=== PATIENT | female | born 1975 | race Caucasian/White ===

== ENCOUNTER 2017-10-27 14:15 | Inpatient (IN) | payer BC ==
[2017-10-27 14:26] VITALS: BMI 33.1
[2017-10-27 14:55] LABS: BILIRUBIN,URINE 2+ (NEGATIVE); BLOOD/HEMOGLOBIN,URINE 5+ (NEGATIVE); GLUCOSE, URINE NEGATIVE (NEGATIVE); KETONES,URINE 3+ (NEGATIVE); LEUKOCYTE ESTERASE ,URINE 1+ (NEGATIVE); NITRITES,URINE NEGATIVE (NEGATIVE); PROTEIN,URINE 1+ (NEGATIVE); UROBILINOGEN,URINE 2+ (NORMAL)
[2017-10-27] MEDS ORDERED: NS 1000 ML 1,000 ML ONE (14:56)
--- NOTE | 2017-10-27 14:59 | ED.ABDFE ---
HPI - Time seen Time seen: 14:52 - PCP Primary Care Physician: NFD - Complaint Chief Complaint Doctors Comments: Patient is complaining of RUQ pain for the past 24 hours getting worst with nausea and vomiting x1. States she has had problems with her gallbladder before and she would take Advil and the pain would go away but the pain would not go away today. States she was told she had a small gall stone about 3-4 years ago and that it was up to her to have it out or not and she never did go back to the doctor. States the pain is 7 of 10. She denies dysuria, hematuria, fever, chills or dionisio. States she is on her period presently and she has had a bilateral tubaligation in the past. She denies tobacco or alcohol usage. States she last had Advil around 11 am and ate about four hours ago. States she has had problems with elevated blood pressure before. Chief Complaint:: PT C/O RIGHT UPPER QUAD PAIN AT 1 PM AND THAT SHE WAS DX A LITTLE WHILE AGO WITH STONES AND PT WENT TO [facility] AND SHE STATES SHE WAS TOLD TO COME THE ER B/C THEY HAD NO WAY TO CHECK HER OUT.. - Nurses notes reviewed Nurses Notes Review: Yes - Source History Provided: Patient - Mode of arrival Mode of Arrival: Ambulatory - Timing Onset of Chief Complaint: 10/25/17 Came on: Gradually - Duration Duration: Intermittent How lon Duration: Days - Location Location: RUQ - Severity Severity: Moderate - Quality Quality: Sharp - Context Onset: Gradually History of: Similar pain (dx) - Modifying Worsening Factors: Nothing Improving Factors: Nothing - Associated signs and symptoms Associated Signs and Symptoms: Nausea, Vomiting PMH - PMH Past Medical History: No Past Surgical History: Yes Past Surgical History Comment: TUBAL.. - Family History History of Family Medical Conditions: No - Social History Does patient currently use any type of tobacco product: No Have you used tobacco products in the last 12 months: No Type of Tobacco Use: None Does any household member use tobacco: No Alcohol Use: Rarely Do you use any recreational Drugs:: No Lives With: Family Lives Where: Home - infectious screening In the last 2 months have you had wt loss of >10#?: NO Have you had fever, night sweats or hemotysis?: No Have you traveled outside the country in the last 6 months?: No Isolation: Standard ROS - Review of Systems Constitutional: No Symptoms Reported, Loss of Appetite. negative: See HPI, Chills, Diaphoresis, Fever, Malaise, Weakness, Irritable, Fatigue, Other Eyes: No Symptoms Reported. negative: See HPI, Eye Pain, Blurred Vision, Tearing, Discharge, Photophobia, Diplopia, Other ENTM: No Symptoms Reported Respiratoy: No Symptoms Reported. negative: See HPI, Productive Cough, Non- Productive Cough, Moist Cough, Dry Cough, Hacking Cough, Barking Cough, Brassy Cough, Orthopnea, Short of Breath, Stridor, Wheezing, Hemoptysis, Other Cardiovascular: No Symptoms Reported. negative: See HPI, Chest Pain, Edema, Palpitations, Syncope, Cyanosis, Skin Mottling, Other Gastrointestinal/Abdominal: No Symptoms Reported, Abdominal Pain, Nausea, Vomiting. negative: See HPI, Constipation, Diarrhea, Food Intolerance, Other Genitourinary: No Symptoms Reported. negative: See HPI, Discharge, Dysuria, Frequency, Hematuria, Pain, Bleeding, Other Neurological: No Symptoms Reported. negative: See HPI, Anxiety, Depressed, Emotional Problems, Headache, Numbness, Paresthesia, Pre-existing Deficit, Seizure, Tingling, Tremors, Weakness, Dizziness, Problems Walking, Speech Problem, Other Musculoskeletal: No Symptoms Reported Integumentary: No Symptoms Reported Hematologic/Lymphatic: No Symptoms Reported. negative: See HPI, Anemia, Blood Clots, Easy Bleeding, Easy Bruising, Swollen Glands, Lymphadenopathy, Other Endocrine: No Symptoms Reported Psychiatric: No Symptoms Reported. negative: See HPI, Anxiety, Depression, Hallucinations, Excessive crying, Suicidal, Other PE - Vital Signs Vitals: Temperature 99.2 F Pulse Rate [Left Brachial] 76 Pulse Rate 89 Respiratory Rate 22 Blood Pressure [Left Arm] 196/96 Blood Pressure 221/110 O2 Sat by Pulse Oximetry 100 - General Limitations: No Limitations General Appearance: Alert, In Distress (slight) - Head Head Exam: Normal Inspection, Atraumatic, Normocephalic - Eyes Eye exam: Normal Appearance, PERRL, EOMI. negative: Scleral Icterus, Conjunctival Injection, Nystagmus, Miosis, Mydrasis, Periorbital Swelling, Periorbital Tenderness, Other - ENT ENT Exam: Normal Exam, Normal Oropharynx, Normal External Ear Exam, Mucous Membranes Moist, TM's Normal Bilaterally. negative: Mucous Membranes Dry, Other - Neck Neck Exam: Normal Inspection, Full ROM, Trachea Midline. negative: Tenderness, Meningismus, Lymphadenopathy, Thyromegaly, Other - Chest Chest Inspection: Normal Inspection, Symmetric Chest Wall Rise. negative: Tenderness, Rash, Abscess, Other - Respiratory Respiratory Exam: Normal Lung Sounds Bilat. negative: Accessory Muscle Use, Chest Wall Tenderness, Prolonged Expiratory Phase, Respiratory Distress, Stridor , Other Respiratory Exam: Bilateral Clear to Auscultation - Cardiovascular Cardiovascular Exam: Regular Rate, Normal Rhythm, Normal Heart Sounds - Abdominal Exam Abdominal Exam: Normal Inspection, Normal Bowel Sounds, Soft, Tenderness (RUQ tenderness with guarding), Guarding. negative: Distention, Rebound, Rigidity, Dimnished Bowel Sounds, Hyperactive Bowel Sounds, Hypoactive Bowel Sounds, Organomegaly, Trauma, Incision, Ascites, Mass, Bruit, Pulsatile Mass, Hernia, Other Abdominal Tenderness: RUQ, Moderate. negative: RLQ, LUQ, LLQ, Epigastrium, Suprapubic, Diffuse, Mild, Severe, Other - Rectal Rectal Exam: Deferred - Back Back Exam: Normal Inspection, Full ROM. negative: Tenderness, (R) CVA Tenderness, (L) CVA Tenderness, Muscle Spasm, Paraspinal Tenderness, Vertebral Tenderness, Rashes, (R) Sciatic Notch Tenderness, (L) Sciatic Notch Tendern, (R ) Straight Leg Raise, (L) Straight Leg Raise, Other - Extremeties Extremities Exam: Normal Inspection, Full ROM, Normal Capillary Refill. negative: Tenderness, Edema, Joint Swelling, Calf Tenderness, Other - External Exam: Female: Deferred : Speculum Exam (Female): Deferred : Bimanual Exam (female): Deferred - Neurologic Neurological Exam: Alert, Oriented X3, CN II-XII Intact, Reflexes Normal. negative: Normal Gait (gait not tested) - Psychiatric Psychiatric Exam: Normal Affect, Normal Mood - Skin Skin Exam: Warm, Dry, Intact, Normal Color Course - Consultation Called: 18:07 Call Returned: 18:07 (Dr. Schmidt to admit) - Education/Counseling Education/Counseling: Patient, Family Educated On: Treatment, Diagnosis, Needs for Follow Up ROR - Labs Reviewed Laboratory Results Reviewed?: Yes (All labs and x-ray results reveiwed and discussed with patient) Result Diagrams: 10/27/17 15:10/27/17 15: Laboratory: WBC 5.2 X10^3/uL (3.6-10.0) 10/27/17 15: RBC 4.85 X10^6/uL (3.5-5.4) 10/27/17 15: Hgb 14.5 g/dL (12.0-16.0) 10/27/17 15: Hct 41.7 % (36.0-47.0) 10/27/17: MCV 85.8 fL (80.0-100.0) 10/27/17: MCH 29.8 pg (27.0-34.0) 10/27/17: MCHC 34.8 g/dL (33.0-35.0) 10/27/17 RDW 13.3 % (11.6-16.5) 10/27/17 Plt Count 286 X10^3/uL (150.0-450.0) 10/27/17 MPV 8.6 fL (7.4-11.0) 10/27/17: Neut % 64.4 % (42.0-75.0) 10/27/17: Lymph % 26.0 % (21.0-51.0) 10/27/17: [place] % 5.6 % (0.0-13.0) 10/27/17: Eos % 3.1 % (0.9-2.9) H 10/27/17: Baso % 0.9 % (0.2-1.0) 10/27/17: Neut # 3.3 x10^3/uL (2.2-4.8) 10/27/17: Lymph # 1.3 X10^3/uL (1.3-2.9) 10/27/17: [place] # 0.3 x10^3/uL (0.3-0.8) 10/27/17: Eos # 0.2 x10^3/uL (0.0-0.2) 10/27/17: Baso # 0.0 X10^3/uL (0.0-0.1) 10/27/17 15:23 Absolute Nucleated RBC 0.0 /100WBC 10/27/17 15:23 Sodium 139 mmol/L (136-145) 10/27/17 15:23 Corrected Sodium 139 mmol/L (136-145) 10/27/17 15:23 Potassium 3.4 mmol/L (3.5-5.1) L 10/27/17 15:23 Chloride 102 mmol/L (98-107) 10/27/17 15:23 Carbon Dioxide 25.7 mmol/L (21-32) 10/27/17 15:23 BUN 5 mg/dL (7-18) L 10/27/17 15:23 Creatinine 0.49 mg/dL (0.55-1.02) L 10/27/17 15:23 Est GFR (MDRD) Af Amer > 60 (>60) 10/27/17 15:23 Est GFR (MDRD) Non-Af > 60 (>60) 10/27/17 15:23 Glucose 120 mg/dL (65-99) H 10/27/17 15:23 Calcium 8.8 mg/dL (8.5-10.1) 10/27/17 15:23 Corrected Calcium TNP 10/27/17 15:23 Total Bilirubin 5.40 mg/dL (0.2-1.0) H 10/27/17 15:23 AST 317 Units/L (15-37) H 10/27/17 15:23 ALT 521 Units/L (12-78) H 10/27/17 15:23 Alkaline Phosphatase 248 Units/L (46-116) H 10/27/17 15:23 Total Protein 8.3 g/dL (6.4-8.2) H 10/27/17 15:23 Albumin 4.2 g/dL (3.4-5.0) 10/27/17 15:23 Globulin 4.1 g/dL (2.5-4.5) 10/27/17 15:23 Albumin/Globulin Ratio 1.0 Ratio (1.1-2.1) L 10/27/17 15:23 Amylase 51 Units/L (25-115) 10/27/17 15:23 Lipase 128 Units/L (73-393) 10/27/17 15:23 Specimen Type Clean catch urine 10/27/17 14:45 Urine Color Dark yellow (YELLOW) 10/27/17 14:45 Urine Appearance Slightly hazy (CLEAR) 10/27/17 14:45 Urine pH 7.0 (5.0 - 8.0) 10/27/17 14:45 Ur Specific [place] 1.010 (1.000-1.030) 10/27/17 14:45 Urine Protein 1+ (NEGATIVE) 10/27/17 14:45 Urine Glucose (UA) Negative (NEGATIVE) 10/27/17 14:45 Urine Ketones 3+ (NEGATIVE) 10/27/17 14:45 Urine Occult Blood 5+ (NEGATIVE) 10/27/17 14:45 Urine Nitrite Negative (NEGATIVE) 10/27/17 14:45 Urine Bilirubin 2+ (NEGATIVE) 10/27/17 14:45 Urine Urobilinogen 2+ (NORMAL) 10/27/17 14:45 Ur Leukocyte Esterase 1+ (NEGATIVE) 10/27/17 14:45 Urine RBC 01 - 03 /HPF (NONE SEEN) 10/27/17 14:45 Urine WBC 01 - 04 /HPF (NONE SEEN) 10/27/17 14:45 Ur Squamous Epith Cells Many /HPF (NEGATIVE) 10/27/17 14:45 Amorphous Sediment 1+ /HPF (NEGATIVE) 10/27/17 14:45 Urine Bacteria Trace /HPF (NEGATIVE) 10/27/17 14:45 Hyaline Casts Few /LPF (NEGATIVE) 10/27/17 14:45 Urine Mucus Moderate /HPF (NEGATIVE) 10/27/17 14:45 Ur Culture Indicated? No/not indicated 10/27/17 14:45 - XRAY XRAY Interpreted by: Radiologist (CT abdomen and pelvis: Cholelithiasis) - Diagnosis Discharge Problem: Essential hypertension, Abnormal liver enzymes Cholelithiasis Qualifiers: Cholecystitis presence: with cholecystitis Cholecystitis acuity: acute Abdominal pain Qualifiers: Abdominal location: right upper quadrant Qualified Code(s): R10.11 - Right upper quadrant pain - Discharge Plan Disposition: ADMITTED INPATIENT Condition: Stable - Follow ups/Referrals Follow ups/Referrals: NFD,None [Primary Care Provider] - 3 days - Instructions
[2017-10-27] MEDS ORDERED: NS 1000 ML 1,000 ML IV SCH (15:00)
[2017-10-27 15:08] LABS: APPEARANCE,URINE SLIGHTLY HAZY (CLEAR); COLOR,URINE DARK YELLOW (YELLOW); SQUAMOUS EPITHELIAL CELL,UR MANY /HPF (NEGATIVE)
[2017-10-27 15:09] LABS: AMORPHOUS SEDIMENT,UR 1+ /HPF (NEGATIVE); BACTERIA,URINE TRACE /HPF (NEGATIVE); HYALINE CASTS, URINE FEW /LPF (NEGATIVE); MUCUS,URINE MODERATE /HPF (NEGATIVE)
--- NOTE | 2017-10-27 15:21 | RAD ---
Examination: Portable AP chest History: Right upper quadrant pain Findings: Normal cardiac size with clear lungs and pleural spaces. Impression: No acute or significant findings. Reported By:
[2017-10-27] MEDS ORDERED: TORADOL 30 MG VIAL IVP STA (15:32)
[2017-10-27 15:43] LABS: BASOPHILS % (AUTO) 0.9 % (0.2-1.0); EOSINOPHILS # (AUTO) 0.2 x10^3/uL (0.0-0.2); EOSINOPHILS % (AUTO) 3.1 % (0.9-2.9); HEMATOCRIT 41.7 % (36.0-47.0); HEMOGLOBIN 14.5 g/dL (12.0-16.0); LYMPHOCYTES # (AUTO) 1.3 X10^3/uL (1.3-2.9); MEAN CORPUSCULAR HEMOGLOBIN 29.8 pg (27.0-34.0); MEAN CORPUSCULAR HGB CONC 34.8 g/dL (33.0-35.0); MEAN CORPUSCULAR VOLUME 85.8 fL (80.0-100.0); MEAN PLATELET VOLUME 8.6 fL (7.4-11.0); MONOCYTES # (AUTO) 0.3 x10^3/uL (0.3-0.8); MONOCYTES % (AUTO) 5.6 % (0.0-13.0); NEUTROPHILS # (AUTO) 3.3 x10^3/uL (2.2-4.8); NEUTROPHILS % (AUTO) 64.4 % (42.0-75.0); PLATELET COUNT 286 X10^3/uL (150.0-450.0); RED BLOOD COUNT 4.85 X10^6/uL (3.5-5.4); RED CELL DISTRIBUTION WIDTH 13.3 % (11.6-16.5); WHITE BLOOD COUNT 5.2 X10^3/uL (3.6-10.0)
[2017-10-27 15:55] LABS: ALANINE AMINOTRANSFERASE 521 Units/L (12-78); ALBUMIN 4.2 g/dL (3.4-5.0); ALKALINE PHOSPHATASE 248 Units/L (46-116); AMYLASE 51 Units/L (25-115); ASPARTATE AMINO TRANSFERASE 317 Units/L (15-37); BLOOD UREA NITROGEN 5 mg/dL (7-18); CALCIUM 8.8 mg/dL (8.5-10.1); CARBON DIOXIDE 25.7 mmol/L (21-32); CHLORIDE 102 mmol/L (98-107); COR NA(FOR HYPERGLY) 139 mmol/L (136-145); CREATININE 0.49 mg/dL (0.55-1.02); LIPASE 128 Units/L (73-393); SODIUM 139 mmol/L (136-145); eGFR BLACK RACES > 60 (>60); eGFR NON BLACK RACES > 60 (>60)
[2017-10-27 15:58] LABS: TOTAL PROTEIN 8.3 g/dL (6.4-8.2)
[2017-10-27] MEDS ORDERED: TORADOL 30 MG VIAL ONE (15:58)
--- NOTE | 2017-10-27 16:02 | CT ---
HISTORY: Right upper quadrant pain Study: CT abdomen and pelvis without contrast Comparison: None Technique: Multiple axial images of the abdomen and pelvis were obtained from the lung bases to the pubic symphy sis without the administration of IV contrast. Findings: The visualized portions of the lung bases demonstrates a calcified right lower lobe granuloma.. The liver, spleen, pancreas, kidneys, and adrenal glands are unremarkable in their CT appearance. The gal lbladder demonstrates gallstones. No significant mesenteric lymphadenopathy or stranding can be obse rved. No free fluid or free air is seen within the abdomen. No bowel wall thickening or bowel dilat ation is present. The colon is unremarkable. Specifically, there is no diverticulosis noted within the sigmoid colon. Appendix is normal. The urinary bladder is grossly unremarkable. The bony structu res are grossly intact. IMPRESSION: 1. Cholelithiasis. Reported By:
[2017-10-27] MEDS ORDERED: MORPHINE SULFATE INJ 2 MG INJ IVP ONE (17:19)
[2017-10-27] MEDS ORDERED: ROCEPHIN 1 GM IV PREMIX 1 GM/50 ML IV.SOLN. IV ONE ×2 (17:19→17:20)
[2017-10-27] MEDS ORDERED: MORPHINE SULFATE INJ 2 MG INJ ONE (17:20)
[2017-10-27] MEDS ORDERED: PHENERGAN INJ 25 MG IVP PRN (18:11)
[2017-10-27] MEDS ORDERED: ZOFRAN INJ 4 MG VIAL IVP PRN (18:11)
[2017-10-27] MEDS ORDERED: PEPCID 20 MG IV PREMIX* 20 MG/50 ML BAG IV PRN (18:11)
[2017-10-27] MEDS: D5 1/2 NS 1000 ML 1,000 ML IV SCH (20:39)
[2017-10-28] MEDS: D5 1/2 NS 1000 ML 1,000 ML IV SCH ×2 (05:33→18:17)
[2017-10-28 06:12] LABS: BASOPHILS % (AUTO) 0.7 % (0.2-1.0); EOSINOPHILS # (AUTO) 0.2 x10^3/uL (0.0-0.2); HEMATOCRIT 38.6 % (36.0-47.0); HEMOGLOBIN 13.5 g/dL (12.0-16.0); LYMPHOCYTES # (AUTO) 1.8 X10^3/uL (1.3-2.9); LYMPHOCYTES % (AUTO) 32.4 % (21.0-51.0); MEAN CORPUSCULAR HEMOGLOBIN 30.1 pg (27.0-34.0); MEAN CORPUSCULAR HGB CONC 34.8 g/dL (33.0-35.0); MEAN CORPUSCULAR VOLUME 86.6 fL (80.0-100.0); MEAN PLATELET VOLUME 8.7 fL (7.4-11.0); MONOCYTES # (AUTO) 0.4 x10^3/uL (0.3-0.8); MONOCYTES % (AUTO) 6.8 % (0.0-13.0); NEUTROPHILS # (AUTO) 3.2 x10^3/uL (2.2-4.8); NEUTROPHILS % (AUTO) 57.1 % (42.0-75.0); PLATELET COUNT 294 X10^3/uL (150.0-450.0); RED BLOOD COUNT 4.46 X10^6/uL (3.5-5.4); RED CELL DISTRIBUTION WIDTH 13.8 % (11.6-16.5); WHITE BLOOD COUNT 5.6 X10^3/uL (3.6-10.0)
[2017-10-28 06:25] LABS: ALANINE AMINOTRANSFERASE 431 Units/L (12-78); ALBUMIN 3.7 g/dL (3.4-5.0); ALKALINE PHOSPHATASE 218 Units/L (46-116); ASPARTATE AMINO TRANSFERASE 223 Units/L (15-37); BLOOD UREA NITROGEN 4 mg/dL (7-18); CALCIUM 8.5 mg/dL (8.5-10.1); CARBON DIOXIDE 23.6 mmol/L (21-32); CHLORIDE 105 mmol/L (98-107); CREATININE 0.51 mg/dL (0.55-1.02); SODIUM 140 mmol/L (136-145); TOTAL PROTEIN 7.5 g/dL (6.4-8.2); eGFR BLACK RACES > 60 (>60); eGFR NON BLACK RACES > 60 (>60)
[2017-10-28 06:59] LABS: COR NA(FOR HYPERGLY) 141 mmol/L (136-145)
[2017-10-28] MEDS: ROCEPHIN 1 GM IV PREMIX 1 GM/50 ML IV.SOLN. IV SCH (09:04)
--- NOTE | 2017-10-28 11:56 | DR.H&P ---
H&P - History & Physical for Day of: H&P Date: 10/27/17 - Chief Complaint Chief Complaint: PT C/O RIGHT UPPER QUAD PAIN AT 1 PM AND THAT SHE WAS DX A LITTLE WHILE AGO WITH STONES AND PT WENT TO [facility] FOR THE [facility] AND SHE STATES SHE WAS TOLD TO COME THE ER B/C THEY HAD NO WAY TO CHECK HER OUT - Allergies Allergies/Adverse Reactions: Allergies Allergy/AdvReac Type Severity Reaction Status Date / Time No Known Drug Allergies Allergy Verified 10/27/17 14:21 - History of Present Illness History of Present Illness: 42 WF ER ADMIT AFTER PRESENTING WITH CO ABDOMINAL PAIN N/V. PT HAS GALLSTONES WITH ELEVATED LIVER ENZYMES. PT ADMITTED FOR TREATMENT FOR ABDOMINAL PAIN. IV HYDRATION, PAIN CONTROL. PT DENIES ANY PMH OF DM - Past Medical History Past Medical History: denies: CHF, COPD, Coronary Artery Disease, GERD - Past Surgical History Surgical History: Other - Social History Does patient currently use any type of tobacco product: No Have you used tobacco products in the last 12 months: No Type of Tobacco Use: None Does any household member use tobacco: No Alcohol Use: None Drug Use: None - Medications Home Medications: NK [NK] 10/27/17 [History Confirmed 10/27/17] - Review of Systems Constitutional: No Symptoms Reported Eyes: No Symptoms Reported ENT: No Symptoms Reported Respiratory: No Symptoms Reported Cardiovascular: No Symptoms Reported Gastrointestinal: Nausea, Vomiting, Abdominal Pain Genitourinary: No Symptoms Reported Musculoskeletal: No Symptoms Reported Skin: No Symptoms Reported Neurological: No Symptoms Reported - Physical Exam Vital Signs: Temperature 98.2 F Pulse Rate [Right Brachial] 79 Pulse Rate [Left Brachial] 70 Pulse Rate 89 Respiratory Rate 18 Blood Pressure [Right Arm] 169/83 Blood Pressure [Left Arm] 145/84 Blood Pressure 221/110 O2 Sat by Pulse Oximetry 94 Oriented: Normal Eyes: Normal Ear: Normal Nose: Normal Throat: Normal Respiratory: RLL Diminished, LLL Diminished Cardiovascular: Normal : Normal Auscultation: Bowel Sounds: Normal, Absent Tenderness: RUQ, Epigastric Skin: Normal Musculoskeletal: Normal Psychiatric: Normal Mood Description: Calm Speech Pattern: Clear - Assessment/Plan (1) Abdominal pain Qualifiers: Abdominal location: right upper quadrant Qualified Code(s): R10.11 - Right upper quadrant pain Status: Acute Plan: ADMIT, PAIN CONTROL, GENTLE HYDRATION. NPO, REPEAT AM LABS. N/V MANAGEMENT (2) Abnormal liver enzymes Status: Acute (3) Cholelithiasis Qualifiers: Cholecystitis presence: with cholecystitis Cholecystitis acuity: acute Status: Acute (4) Essential hypertension Status: Acute
[2017-10-29] MEDS: D5 1/2 NS 1000 ML 1,000 ML IV SCH ×3 (04:41→21:42)
[2017-10-29 04:55] LABS: ALANINE AMINOTRANSFERASE 318 Units/L (12-78); ALBUMIN 3.5 g/dL (3.4-5.0); ALKALINE PHOSPHATASE 201 Units/L (46-116); ASPARTATE AMINO TRANSFERASE 130 Units/L (15-37); BLOOD UREA NITROGEN 4 mg/dL (7-18); CALCIUM 8.6 mg/dL (8.5-10.1); CARBON DIOXIDE 25.7 mmol/L (21-32); CHLORIDE 103 mmol/L (98-107); COR NA(FOR HYPERGLY) 139 mmol/L (136-145); CREATININE 0.54 mg/dL (0.55-1.02); SODIUM 138 mmol/L (136-145); TOTAL PROTEIN 7.4 g/dL (6.4-8.2); eGFR BLACK RACES > 60 (>60); eGFR NON BLACK RACES > 60 (>60)
[2017-10-29 04:57] LABS: BASOPHILS % (AUTO) 0.5 % (0.2-1.0); EOSINOPHILS # (AUTO) 0.2 x10^3/uL (0.0-0.2); EOSINOPHILS % (AUTO) 3.2 % (0.9-2.9); HEMATOCRIT 39.7 % (36.0-47.0); HEMOGLOBIN 13.4 g/dL (12.0-16.0); LYMPHOCYTES # (AUTO) 2.3 X10^3/uL (1.3-2.9); LYMPHOCYTES % (AUTO) 33.4 % (21.0-51.0); MEAN CORPUSCULAR HEMOGLOBIN 29.5 pg (27.0-34.0); MEAN CORPUSCULAR HGB CONC 33.7 g/dL (33.0-35.0); MEAN CORPUSCULAR VOLUME 87.5 fL (80.0-100.0); MEAN PLATELET VOLUME 8.4 fL (7.4-11.0); MONOCYTES # (AUTO) 0.5 x10^3/uL (0.3-0.8); MONOCYTES % (AUTO) 7.3 % (0.0-13.0); NEUTROPHILS # (AUTO) 3.9 x10^3/uL (2.2-4.8); NEUTROPHILS % (AUTO) 55.6 % (42.0-75.0); PLATELET COUNT 284 X10^3/uL (150.0-450.0); RED BLOOD COUNT 4.54 X10^6/uL (3.5-5.4); RED CELL DISTRIBUTION WIDTH 13.2 % (11.6-16.5)
[2017-10-29] MEDS ORDERED: POTASSIUM CHLORIDE LIQ 20 MEQ UDC PO PRN (05:12)
[2017-10-29] MEDS ORDERED: K-RIDER 10 MEQ/NS 100 ML 10 MEQ/100 ML BAG IV PRN (05:12)
[2017-10-29] MEDS ORDERED: POTASSIUM CHL 40 MEQ/NS 0.45% 500 ML IV PRN (05:12)
[2017-10-29] MEDS ORDERED: MAG-OX TAB PO PRN (05:12)
[2017-10-29] MEDS ORDERED: POTASSIUM CHL 60 MEQ/NS 0.45% 500 ML IV PRN (05:12)
[2017-10-29] MEDS ORDERED: MAGNESIUM SULFATE 1 GM/100 mL PREMIX 1 GM/100 ML BAG IV PRN (05:12)
[2017-10-29] MEDS ORDERED: K-LYTE EFFERVESCENT PO PRN (05:12)
[2017-10-29] MEDS: ROCEPHIN 1 GM IV PREMIX 1 GM/50 ML IV.SOLN. IV SCH (09:21)
[2017-10-29] MEDS: TORADOL 15 MG VIAL IVP SCH ×3 (15:35→21:42)
--- NOTE | 2017-10-29 16:41 | MRI ---
HISTORY: Right upper quadrant pain, nausea, gallstones Study: MRI abdomen without contrast, MRCP protocol Comparison: October 27, 2017 Technique: Multi planar, multi sequence MRI images of the abdomen were reviewed without contrast util izing the MRCP protocol with MIP 3D reformatted post processing performed and reviewed. Findings: Stones and sludge filled the fundus of the gallbladder which is mildly hydropic. There is no perichol ecystic fluid. However, cholecystitis cannot be entirely excluded. No biliary or pancreatic ductal di lation is identified. There is no free fluid. The noncontrast appearance of the solid organs is unrem arkable. No mesenteric or retroperitoneal lymphadenopathy is identified. There is no marrow replaceme nt process. IMPRESSION: Stones and sludge within a mildly hydropic gallbladder. Cholecystitis cannot be entirely excluded. If further imaging evaluation is clinically warranted, nuclear medicine HIDA scan would be recommended. Reported By:
[2017-10-30 05:00] LABS: BASOPHILS # (AUTO) 0.1 X10^3/uL (0.0-0.1); BASOPHILS % (AUTO) 0.8 % (0.2-1.0); EOSINOPHILS # (AUTO) 0.2 x10^3/uL (0.0-0.2); EOSINOPHILS % (AUTO) 2.3 % (0.9-2.9); HEMATOCRIT 39.5 % (36.0-47.0); HEMOGLOBIN 13.3 g/dL (12.0-16.0); LYMPHOCYTES # (AUTO) 2.8 X10^3/uL (1.3-2.9); LYMPHOCYTES % (AUTO) 33.1 % (21.0-51.0); MEAN CORPUSCULAR HEMOGLOBIN 29.3 pg (27.0-34.0); MEAN CORPUSCULAR HGB CONC 33.8 g/dL (33.0-35.0); MEAN CORPUSCULAR VOLUME 86.7 fL (80.0-100.0); MEAN PLATELET VOLUME 8.4 fL (7.4-11.0); MONOCYTES # (AUTO) 0.6 x10^3/uL (0.3-0.8); MONOCYTES % (AUTO) 6.6 % (0.0-13.0); NEUTROPHILS # (AUTO) 4.9 x10^3/uL (2.2-4.8); NEUTROPHILS % (AUTO) 57.2 % (42.0-75.0); PLATELET COUNT 293 X10^3/uL (150.0-450.0); RED BLOOD COUNT 4.56 X10^6/uL (3.5-5.4); RED CELL DISTRIBUTION WIDTH 13.4 % (11.6-16.5); WHITE BLOOD COUNT 8.6 X10^3/uL (3.6-10.0)
[2017-10-30 05:08] LABS: ALANINE AMINOTRANSFERASE 245 Units/L (12-78); ALBUMIN 3.5 g/dL (3.4-5.0); ALKALINE PHOSPHATASE 195 Units/L (46-116); ASPARTATE AMINO TRANSFERASE 67 Units/L (15-37); BLOOD UREA NITROGEN 8 mg/dL (7-18); CALCIUM 8.7 mg/dL (8.5-10.1); CARBON DIOXIDE 28.1 mmol/L (21-32); CHLORIDE 102 mmol/L (98-107); COR NA(FOR HYPERGLY) 140 mmol/L (136-145); CREATININE 0.57 mg/dL (0.55-1.02); SODIUM 140 mmol/L (136-145); TOTAL PROTEIN 7.3 g/dL (6.4-8.2); eGFR BLACK RACES > 60 (>60); eGFR NON BLACK RACES > 60 (>60)
[2017-10-30] MEDS: D5 1/2 NS 1000 ML 1,000 ML IV SCH (08:18)
[2017-10-30] MEDS: ROCEPHIN 1 GM IV PREMIX 1 GM/50 ML IV.SOLN. IV SCH (08:18)
[2017-10-30] MEDS ORDERED: NS 1000 ML 1,000 ML ONE (13:07)
[2017-10-30] MEDS ORDERED: ANCEF 1 GM IV PREMIX* 1 GM/50 ML BAG IV ONE (13:22)
[2017-10-30] MEDS ORDERED: FENTANYL INJ 250 mcg ONE (13:44)
[2017-10-30] MEDS ORDERED: MARCAINE 0.25% INJ ONE (14:10)
[2017-10-30] MEDS ORDERED: NS IRRIGATION 1000 ML 1,000 ML IR ONE ×2 (14:22→14:58)
--- NOTE | 2017-10-30 15:31 | OR.GENERIC ---
Post-Op Note Generic - Post-Op Note Operative Report: PO note Pt underwent DIAGNOSTIC lAPAROSCOPYAND lAPAROSCOPIC CHOLECYSTECTOMY WITH THE FINDING OF ACUTE AND CHRONIC CALCULUS CHOLECYSTITIS ,DISTENDED GB WITH THICK BILE , SMALL AND LARGE STONES EBL about 20 cc will keep on clear liquid and advance to low fat diet in am.
[2017-10-30] MEDS: DILAUDID INJ ONE ×2 (15:41→15:46)
[2017-10-30] MEDS ORDERED: NORMODYNE INJ 100 MG VIAL ONE (15:43)
[2017-10-30] MEDS ORDERED: ZOFRAN INJ 4 MG VIAL ONE (15:43)
[2017-10-30] MEDS ORDERED: QUELICIN (OR ANECTINE) ONE (15:43)
[2017-10-30] MEDS ORDERED: SUPRANE IN ONE (15:43)
[2017-10-30] MEDS ORDERED: NORCURON INJ 10 MG VIAL ONE (15:43)
[2017-10-30] MEDS ORDERED: XYLOCAINE 2 % (PLAIN) ONE (15:43)
[2017-10-30] MEDS ORDERED: VERSED ONE (15:43)
[2017-10-30] MEDS ORDERED: NEOSTIGMINE INJ ONE (15:43)
[2017-10-30] MEDS ORDERED: REGLAN INJ 10 MG VIAL ONE (15:43)
[2017-10-30] MEDS ORDERED: TORADOL 30 MG VIAL ONE (15:43)
[2017-10-30] MEDS ORDERED: ROBINUL ONE (15:43)
[2017-10-31] MEDS: D5 1/2 NS 1000 ML 1,000 ML IV SCH (00:53)
[2017-10-31] MEDS: MORPHINE SULFATE INJ 2 MG INJ IVP PRN ×2 (00:54→08:17)
[2017-10-31 06:13] LABS: ALANINE AMINOTRANSFERASE 186 Units/L (12-78); CHLORIDE 104 mmol/L (98-107); SODIUM 140 mmol/L (136-145); TOTAL PROTEIN 6.9 g/dL (6.4-8.2)
[2017-10-31 06:16] LABS: BASOPHILS % (AUTO) 0.3 % (0.2-1.0); EOSINOPHILS % (AUTO) 0.3 % (0.9-2.9); HEMATOCRIT 36.4 % (36.0-47.0); HEMOGLOBIN 12.4 g/dL (12.0-16.0); LYMPHOCYTES # (AUTO) 1.7 X10^3/uL (1.3-2.9); LYMPHOCYTES % (AUTO) 14.4 % (21.0-51.0); MEAN CORPUSCULAR HEMOGLOBIN 29.7 pg (27.0-34.0); MEAN CORPUSCULAR HGB CONC 34.2 g/dL (33.0-35.0); MEAN CORPUSCULAR VOLUME 86.9 fL (80.0-100.0); MEAN PLATELET VOLUME 8.6 fL (7.4-11.0); MONOCYTES # (AUTO) 0.6 x10^3/uL (0.3-0.8); MONOCYTES % (AUTO) 5.4 % (0.0-13.0); NEUTROPHILS # (AUTO) 9.5 x10^3/uL (2.2-4.8); NEUTROPHILS % (AUTO) 79.6 % (42.0-75.0); PLATELET COUNT 262 X10^3/uL (150.0-450.0); RED BLOOD COUNT 4.18 X10^6/uL (3.5-5.4); RED CELL DISTRIBUTION WIDTH 13.2 % (11.6-16.5); WHITE BLOOD COUNT 11.9 X10^3/uL (3.6-10.0)
[2017-10-31 06:48] LABS: eGFR BLACK RACES > 60 (>60); eGFR NON BLACK RACES > 60 (>60)
[2017-10-31 06:56] LABS: ALBUMIN 3.3 g/dL (3.4-5.0); ALKALINE PHOSPHATASE 162 Units/L (46-116); ASPARTATE AMINO TRANSFERASE 61 Units/L (15-37); BLOOD UREA NITROGEN 5 mg/dL (7-18); CALCIUM 8.3 mg/dL (8.5-10.1); CARBON DIOXIDE 24.7 mmol/L (21-32); COR CA(FOR HYPOALB) 8.9 mg/dL (8.5-10.1); COR NA(FOR HYPERGLY) 141 mmol/L (136-145); CREATININE 0.52 mg/dL (0.55-1.02)
[2017-10-31] MEDS: ROCEPHIN 1 GM IV PREMIX 1 GM/50 ML IV.SOLN. IV SCH (08:17)
--- NOTE | 2017-10-31 10:52 | DR.PROGNOT ---
Hospital Progress Notes - Progress Note for Day of: Progress Note Date: 10/31/17 - Chief Complaint Chief Complaint: PO lap loren day 1.. doing very well with minimal drainage in AMPAR[place] . LFTs are improving . no nausea or vomiting . Drain was removed. pt could be D/C . will follow in 10 days . was given [place] for pain , no need for ATB. - Past Medical Family Social History Allergies: Allergies No Known Drug Allergies Allergy (Verified 10/27/17 14:21) - Vital Signs Vital Signs: Temperature 98.8 F Pulse Rate [Right Brachial] 74 Pulse Rate [Left Brachial] 20 Pulse Rate 72 Respiratory Rate 16 Blood Pressure [Right Arm] 141/78 Blood Pressure [Left Arm] 145/84 Blood Pressure 166/85 O2 Sat by Pulse Oximetry 95 - Physical Exam Oriented: Normal Eyes: Normal Ear: Normal Nose: Normal Throat: Normal Cardiovascular: Normal : Normal GI:Auscultation: Normal, Absent GI: Tenderness: RUQ, Epigastric (mild generalized tenderness with good BS) Skin: Normal Musculoskeletal: Normal Psychiatric: Normal Mood Description: Calm Speech Pattern: Clear - Laboratory and Diagnostics Result Diagrams: 10/31/17 04:50 10/31/17 04:50 Labs: Laboratory WBC 11.9 X10^3/uL (3.6-10.0) H 10/31/17 04:50 RBC 4.18 X10^6/uL (3.5-5.4) 10/31/17 04:50 Hgb 12.4 g/dL (12.0-16.0) 10/31/17 04:50 Hct 36.4 % (36.0-47.0) 10/31/17 04:50 MCV 86.9 fL (80.0-100.0) 10/31/17 04:50 MCH 29.7 pg (27.0-34.0) 10/31/17 04:50 MCHC 34.2 g/dL (33.0-35.0) 10/31/17 04:50 RDW 13.2 % (11.6-16.5) 10/31/17 04:50 Plt Count 262 X10^3/uL (150.0-450.0) 10/31/17 04:50 MPV 8.6 fL (7.4-11.0) 10/31/17 04:50 Neut % (Auto) 79.6 % (42.0-75.0) H 10/31/17 04:50 Lymph % (Auto) 14.4 % (21.0-51.0) L 10/31/17 04:50 [place] % (Auto) 5.4 % (0.0-13.0) 10/31/17 04:50 Eos % (Auto) 0.3 % (0.9-2.9) L 10/31/17 04:50 Baso % (Auto) 0.3 % (0.2-1.0) 10/31/17 04:50 Neut # (Auto) 9.5 x10^3/uL (2.2-4.8) H 10/31/17 04:50 Lymph # (Auto) 1.7 X10^3/uL (1.3-2.9) 10/31/17 04:50 [place] # (Auto) 0.6 x10^3/uL (0.3-0.8) 10/31/17 04:50 Eos # (Auto) 0.0 x10^3/uL (0.0-0.2) 10/31/17 04:50 Baso # (Auto) 0.0 X10^3/uL (0.0-0.1) 10/31/17 04:50 Absolute Nucleated RBC 0.0 /100WBC 10/31/17 04:50 Sodium 140 mmol/L (136-145) 10/31/17 04:50 Corrected Sodium 141 mmol/L (136-145) 10/31/17 04:50 Potassium 3.4 mmol/L (3.5-5.1) L 10/31/17 04:50 Chloride 104 mmol/L (98-107) 10/31/17 04:50 Carbon Dioxide 24.7 mmol/L (21-32) 10/31/17 04:50 BUN 5 mg/dL (7-18) L 10/31/17 04:50 Creatinine 0.52 mg/dL (0.55-1.02) L 10/31/17 04:50 Est GFR (MDRD) Af Amer > 60 (>60) 10/31/17 04:50 Est GFR (MDRD) Non-Af > 60 (>60) 10/31/17 04:50 Glucose 123 mg/dL (65-99) H 10/31/17 04:50 Magnesium 1.9 mg/dL (1.7-2.9) 10/29/17 04:08 Calcium 8.3 mg/dL (8.5-10.1) L 10/31/17 04:50 Corrected Calcium 8.9 mg/dL (8.5-10.1) 10/31/17 04:50 Total Bilirubin 1.50 mg/dL (0.2-1.0) H 10/31/17 04:50 AST 61 Units/L (15-37) H 10/31/17 04:50 ALT 186 Units/L (12-78) H 10/31/17 04:50 Alkaline Phosphatase 162 Units/L (46-116) H 10/31/17 04:50 Total Protein 6.9 g/dL (6.4-8.2) 10/31/17 04:50 Albumin 3.3 g/dL (3.4-5.0) L 10/31/17 04:50 Globulin 3.6 g/dL (2.5-4.5) 10/31/17 04:50 Albumin/Globulin Ratio 0.9 Ratio (1.1-2.1) L 10/31/17 04:50 Amylase 51 Units/L (25-115) 10/27/17 15:23 Lipase 128 Units/L (73-393) 10/27/17 15:23 Specimen Type Clean catch urine 10/27/17 14:45 Urine Color Dark yellow (YELLOW) 10/27/17 14:45 Urine Appearance Slightly hazy (CLEAR) 10/27/17 14:45 Urine pH 7.0 (5.0 - 8.0) 10/27/17 14:45 Ur Specific [place] 1.010 (1.000-1.030) 10/27/17 14:45 Urine Protein 1+ (NEGATIVE) 10/27/17 14:45 Urine Glucose (UA) Negative (NEGATIVE) 10/27/17 14:45 Urine Ketones 3+ (NEGATIVE) 10/27/17 14:45 Urine Occult Blood 5+ (NEGATIVE) 10/27/17 14:45 Urine Nitrite Negative (NEGATIVE) 10/27/17 14:45 Urine Bilirubin 2+ (NEGATIVE) 10/27/17 14:45 Urine Urobilinogen 2+ (NORMAL) 10/27/17 14:45 Ur Leukocyte Esterase 1+ (NEGATIVE) 10/27/17 14:45 Urine RBC 01 - 03 /HPF (NONE SEEN) 10/27/17 14:45 Urine WBC 01 - 04 /HPF (NONE SEEN) 10/27/17 14:45 Ur Squamous Epith Cells Many /HPF (NEGATIVE) 10/27/17 14:45 Amorphous Sediment 1+ /HPF (NEGATIVE) 10/27/17 14:45 Urine Bacteria Trace /HPF (NEGATIVE) 10/27/17 14:45 Hyaline Casts Few /LPF (NEGATIVE) 10/27/17 14:45 Urine Mucus Moderate /HPF (NEGATIVE) 10/27/17 14:45 Ur Culture Indicated? No/not indicated 10/27/17 14:45 Tissue Pathology To follow 10/30/17 15:12 - Assessment and Plan 1: PO Lap Loren. low fat diet , change dressing in 2 days. discharge and follow in 10 days - Problem Patient Problems: Patient Problems Abdominal pain (Acute) R10.9 Abnormal liver enzymes (Acute) R74.8 Cholelithiasis (Acute) K80.20 Essential hypertension (Acute) I10
[2017-10-31 13:45] VITALS: BP 156/95
== END 2017-10-31 13:00 | disposition home or self-care (01) | DRG 419 ==
LOC: ER 14:37 → MED/SURG 18:09
PROVIDERS: ADMIT Internal Medicine; ATTEND Internal Medicine
PROC: 0FT44ZZ Resection of Gallbladder, Percutaneous Endoscopic Approach (ICD-10-PCS; principal; 2017-10-30 13:30)
DX: K80.18 Calculus of gallbladder with other cholecystitis without obstruction (principal); R74.8 Abnormal levels of other serum enzymes; R10.11 Right upper quadrant pain; J44.9 Chronic obstructive pulmonary disease, unspecified; I25.10 Atherosclerotic heart disease of native coronary artery without angina pectoris; K21.9 Gastro-esophageal reflux disease without esophagitis; I10 Essential (primary) hypertension
CPT/HCPCS: 36415; 71045; 74176; 74181; 80053; 81001; 82150; 83690; 83735; 85025; 93005; 93010; 94760; 96365; 96367; 96374; 96375; 99284; A4216; A4222; S0020; J0330; J0690; J0696; J1170; J1885; J2001; J2250; J2270; J2405; J2710; J2765; J3010; J3490; J7042

== ENCOUNTER → 2017-11-03 | Outpatient (CLI) | payer BC ==
[2017-10-31 13:45] VITALS: BP 156/95
[2017-11-03 16:30] LABS: BASOPHILS # (AUTO) 0.1 X10^3/uL (0.0-0.1); EOSINOPHILS # (AUTO) 0.4 x10^3/uL (0.0-0.2); HEMATOCRIT 39.9 % (36.0-47.0); HEMOGLOBIN 13.7 g/dL (12.0-16.0); LYMPHOCYTES # (AUTO) 2.6 X10^3/uL (1.3-2.9); LYMPHOCYTES % (AUTO) 28.5 % (21.0-51.0); MEAN CORPUSCULAR HEMOGLOBIN 29.6 pg (27.0-34.0); MEAN CORPUSCULAR HGB CONC 34.3 g/dL (33.0-35.0); MEAN CORPUSCULAR VOLUME 86.4 fL (80.0-100.0); MEAN PLATELET VOLUME 8.4 fL (7.4-11.0); MONOCYTES # (AUTO) 0.5 x10^3/uL (0.3-0.8); MONOCYTES % (AUTO) 5.7 % (0.0-13.0); NEUTROPHILS # (AUTO) 5.6 x10^3/uL (2.2-4.8); NEUTROPHILS % (AUTO) 60.8 % (42.0-75.0); PLATELET COUNT 318 X10^3/uL (150.0-450.0); RED BLOOD COUNT 4.62 X10^6/uL (3.5-5.4); RED CELL DISTRIBUTION WIDTH 13.2 % (11.6-16.5); WHITE BLOOD COUNT 9.2 X10^3/uL (3.6-10.0)
[2017-11-03 16:57] LABS: ALANINE AMINOTRANSFERASE 128 Units/L (12-78); ALBUMIN 3.8 g/dL (3.4-5.0); ALKALINE PHOSPHATASE 204 Units/L (46-116); ASPARTATE AMINO TRANSFERASE 33 Units/L (15-37); BLOOD UREA NITROGEN 8 mg/dL (7-18); CALCIUM 9.3 mg/dL (8.5-10.1); CARBON DIOXIDE 30.3 mmol/L (21-32); CHLORIDE 101 mmol/L (98-107); CREATININE 0.55 mg/dL (0.55-1.02); SODIUM 140 mmol/L (136-145); TOTAL PROTEIN 8.3 g/dL (6.4-8.2); eGFR BLACK RACES > 60 (>60); eGFR NON BLACK RACES > 60 (>60)
== END | disposition home or self-care (01) | DRG 446 ==
LOC: LAB 15:28
PROVIDERS: ATTEND Surgery
DX: K81.9 Cholecystitis, unspecified (principal); Z90.49 Acquired absence of other specified parts of digestive tract
CPT/HCPCS: 36415; 80053; 85025